=== PATIENT | male | born 1945 | race Caucasian/White ===

== ENCOUNTER 2016-06-11 21:51 | Inpatient (IN) | payer BC ==
--- NOTE | ~2016-06-11 | HP ---
History And Physical [address] [place]. [address] NAME: HAFSA SOTELO : 45 STATUS : ADM IN [facility]#: [id number] AGE: 71 ADM/REG DATE : 06/12/16 MR#: [id number] REPORT SERV DATE: 06/12/16 DICTATED BY: ZAINA URBINA DATE: 06/12/16 REPORT STATUS : Draft TRANSCRIBED BY: MODL DATE: 06/12/16 DATE OF ADMISSION: 06/12/2016 POINT OF ENTRY: [facility] Emergency Department. PRIMARY FENDER MECHANIC: Tramaine Gastelum M.D. GI DOCTOR: Amol Avelar M.D. CHIEF COMPLAINT: Fevers and abdominal pain. HISTORY OF PRESENT ILLNESS: Mr. Sotelo is a 71-year-old, gentleman with history of paroxysmal atrial fibrillation, currently on Eliquis as well as fdv-ozfpdbj-iqenakqoa diabetes mellitus type 2, hypertension, hyperlipidemia, and other medical comorbidities, who presents to emergency room today with a two-day history of severe lower quadrant abdominal pain with associated fevers. The patient states he was in his usual state of health until Friday morning when he developed severe bilateral lower quadrant abdominal pain described as crampy in nature with some radiation to his left hip region. Beginning shortly after that, he started to notice fevers as high as 102 degrees Fahrenheit. The pain and fevers continued throughout today prompting his presentation to the emergency department. He denies any nausea, vomiting, diarrhea, or constipation. Initial evaluation in the emergency department notable for a fever of 100.3 degrees Fahrenheit. Remainder of his vital signs were unremarkable[place] [address] scan of the abdomen and pelvis did show severe acute diverticulitis involving the mid to proximal sigmoid colon. The patient was subsequently admitted to the Hospitalist Service for further evaluation and management. REVIEW OF SYSTEMS: Comprehensive review of systems otherwise, negative unless listed in history of present illness. PAST MEDICAL HISTORY: 1. Paroxysmal atrial fibrillation, on Eliquis. 2. History of aortic stenosis, status post bioprosthetic AVR. 3. Coronary disease status post CABG. 4. Usf-uzkwoaw-loslrulql diabetes mellitus type 2. 5. Hypertension. 6. Hyperlipidemia. 7. Obstructive sleep apnea, on CPAP therapy. 8. Gastroesophageal reflux disease. 9. Chronic kidney stage III, baseline creatinine approximately 1.2 to 1.4. 10.Obesity. History And Physical [address] [address] NAME: HAFSA SOTELO : 45 STATUS : ADM IN PAT#: [id number] AGE: 71 ADM/REG DATE : 06/12/16 MR#: [id number] REPORT SERV DATE: 06/12/16 DICTATED BY: ZAINA URBINA DATE: 06/12/16 REPORT STATUS : Draft TRANSCRIBED BY: BALTAZAR DATE: 06/12/16 SURGICAL HISTORY: 1. Bioprosthetic AVR. 2. CABG. 3. Bilateral total knee. 4. Back surgery. ALLERGIES: NO KNOWN DRUG ALLERGIES. HOME MEDICATIONS: 1. Albuterol two puff inhalation p.r.n. shortness of breath. 2. Eliquis 5 mg b.i.d. 3. Losartan 50 mg b.i.d. 4. Metformin 500 mg b.i.d. 5. Protonix 40 mg at bedtime. 6. Crestor 10 mg at bedtime. 7. Sotalol 40 mg q.a.m. 8. Sotalol 80 mg q.p.m. 9. Maxzide 50 one tablet at bedtime. SOCIAL HISTORY: Denies any tobacco, alcohol, or illicits. FAMILY MEDICAL HISTORY: Mother with stroke. Father of old age at 93. Sibling with history of dementia. LABS AND IMAGIN. White count is 15.1, hemoglobin 15.4, hematocrit 45.5, and platelet count is 196. 2. Sodium is 137, potassium 4.0, chloride 101, carbon dioxide 30, BUN 23, creatinine 1.62, glucose is 119, calcium is 9.6, protein 7.9, albumin is 3.7, bilirubin is 0.9, ALT is 25, AST 15, and alkaline phosphatase is 60. 3. Lipase is 65, lactic acid is 1.4. 4. Urinalysis: Specific gravity is 1.017, no evidence of any infection. CT scan of the abdomen and pelvis shows cholelithiasis with severe acute diverticulitis involving the mid to proximal sigmoid colon. EKG per my review shows normal sinus rhythm with no evidence of any acute ischemia or infarction, just has some lateral T-wave inversions. Also, QTc is within normal limits. PHYSICAL EXAMINATION: VITAL SIGNS: Temperature is 100.3 degrees Fahrenheit, pulse is 82, respirations 14, saturating 94% on room air. Blood pressure 121/67. On recheck, blood pressure is now 118/59. GENERAL: The patient is awake, alert, in no acute distress, resting comfortably in bed. He is a well-developed, well-nourished, male, is at bedside. HEENT: Atraumatic and normocephalic. Moist mucous membranes. Pupils are equal, round, reactive to light and accommodation. Extraocular eye movements are intact. No scleral icterus. NECK: No jugular venous distention. No carotid bruits. History And Physical [address] [address] NAME: HAFSA SOTELO : 45 STATUS : ADM IN [facility]#: [id number] AGE: 71 ADM/REG DATE : 06/12/16 MR#: [id number] REPORT SERV DATE: 06/12/16 DICTATED BY: ZAINA URBINA DATE: 06/12/16 REPORT STATUS : Draft TRANSCRIBED BY: BALTAZAR DATE: 06/12/16 CARDIAC: Regular rate and rhythm. No murmurs or gallops. Normal S1, S2. LUNGS: Clear to auscultation bilaterally. No wheezes, rhonchi, or crackles. ABDOMEN: Soft, mildly tender to palpation bilateral lower quadrants but no rebound, guarding, rigidity. Hypoactive bowel sounds throughout. EXTREMITIES: Warm and well perfused. No cyanosis, clubbing, or edema. SKIN: Warm and dry. PSYCH: Affect appropriate. NEURO: Alert and oriented x3. Cranial nerves 2 through 12 grossly intact. Speech is normal. Gait not assessed. ASSESSMENT AND PLAN: Mr. Sotelo is a 71-year-old, gentleman, who presents with a two-day history of fevers and bilateral lower quadrant abdominal pain and found to have evidence of diverticulitis as well as sepsis. PROBLEM LIST: 1. Acute sigmoid diverticulitis. 2. Sepsis. 3. Acute kidney injury on chronic kidney stage III. 4. History of paroxysmal atrial fibrillation, on Eliquis. PLAN: 1. Acute diverticulitis. We will treat with supportive care with IV fluids, antiemetics, and pain control as well as antibiotics of Levaquin and Flagyl. The patient denies any diarrhea, nausea, or vomiting at this time. Therefore, we will place him on a clear liquid diet. Should he produce any diarrhea, we will send off for stool cultures, ova and parasites, and C. diff. 2. Sepsis. The patient [place] [address] here as well as reports of fevers of 102 degrees Fahrenheit at home. Blood cultures have been obtained. Lactic acid within normal limits. We are checking a procalcitonin level. Placing on IV antibiotics as well as IV fluids. 3. Acute kidney injury on chronic kidney disease stage 3. Holding the patient's nephrotoxic medications. Provide IV fluid hydration. 4. Atrial fibrillation, on Eliquis. Continue the patient's home sotalol as well as Eliquis. He is currently within normal sinus rhythm with normal QTc. We will continue cardiac telemetry monitoring given he is going to be on sotalol as well as Levaquin. 5. DVT prophylaxis. The patient is on Eliquis. CODE STATUS: The patient wished to be full code. LINCOLN/BALTAZAR Zaina Urbian MD / [id number] History And Physical [address] [address] NAME: HAFSA SOTELO : 45 STATUS : ADM IN [facility]#: [id number] AGE: 71 ADM/REG DATE : 06/12/16 MR#: [id number] REPORT SERV DATE: 06/12/16 DICTATED BY: ZAINA URBINA DATE: 06/12/16 REPORT STATUS : Draft TRANSCRIBED BY: BALTAZAR DATE: 06/12/16 CC: DO Kimberlyn Boyd M.D. William Warren, M.D. Amol Avelar M.D.
--- NOTE | ~2016-06-11 | DS ---
Discharge Summary [facility] [address] [place]. [address] NAME: HAFSA SOTELO : 45 STATUS : DIS IN PAT#: [id number] AGE: 71 ADM/REG DATE : 06/12/16 MR#: [id number] REPORT SERV DATE: 06/15/16 DICTATED BY: SHAWN IRVIN DATE: 06/14/16 REPORT STATUS : Draft TRANSCRIBED BY: MODL DATE: 06/14/16 ADMISSION DATE: 06/12/2016 DISCHARGE DATE: 06/14/2016 REASON FOR ADMISSION: Sepsis secondary to an acute diverticulitis. HISTORY OF PRESENT ILLNESS: Please refer to Dr. Denis's history and physical dated 06/12/2016 for complete details regarding the patient's admission. In brief, the patient is admitted to the Hospice Service for management and evaluation of his sepsis secondary to diverticulitis along with acute kidney injury. HOSPITAL COURSE: The patient had an uncomplicated hospital course. He presented with sepsis criteria. He had a CT scan of his abdomen and pelvis done without contrast in the ER, which showed severe acute diverticulitis involving a 10-cm long segment of the mid to proximal sigmoid colon, although no abscess identified. There was a serpiginous soft tissue attenuation tubular structure adjacent to the right lateral bladder wall of uncertain etiology. The patient was started on IV Levaquin and Flagyl. Fluid resuscitated. He was feeling better every day. He did have an elevated white blood cell count on admission and it has trended down towards normal. It has been normal for the past two days. He did present with an acute on chronic kidney disease secondary to sepsis and dehydration, which has now resolved. His creatinine is back down to roughly 1.17 with a GFR of 72. The patient is ambulating, eating well, not having any abdominal issues. He has reached maximal hospitalization. Will be discharged home in stable condition. DISCHARGE DIAGNOSES: Sepsis secondary to acute diverticulitis, resolved; acute on chronic kidney disease stage 2, now resolved; paroxysmal atrial fibrillation, on Eliquis, stable and rate controlled; hypertension, controlled. PROCEDURES: Include CT scan of the abdomen and pelvis without contrast. DISCHARGE MEDICATIONS: Include Eliquis 5 mg twice a day, Protonix 40 mg at bedtime, sotalol 40 mg every evening and 80 mg at bedtime, Crestor 10 mg at bedtime, Maxzide 50 mg every morning, losartan 50 mg twice a day, metformin 500 mg twice a day, ProAir p.r.n., Levaquin 750 mg once a day for seven days, and Flagyl 500 mg every eight hours for seven days. FOLLOWUP: The patient will follow up with Dr. Meléndez. He was given a copy of his CAT scan report in case he would like to pursue further characterization of this tubular structure that was noted on the CT scan. GINNA/BALTAZAR Shawn Irvin MD Discharge Summary [address] [address] NAME: HAFSA SOTELO : 45 STATUS : DIS IN PAT#: [id number] AGE: 71 ADM/REG DATE : 06/12/16 MR#: [id number] REPORT SERV DATE: 06/15/16 DICTATED BY: SHAWN IRVIN DATE: 06/14/16 REPORT STATUS : Draft TRANSCRIBED BY: VICENTEL DATE: 06/14/16 / [id number] CC: MD Kimberlyn Flores M.D. William Warren, M.D. Donald Hetzel, M.D.
[2016-06-11 19:34] LABS: ASCORBIC ACID (UR NOT ORDER) NEG (NEG); BASOPHILS 0.3 %; BASOPHILS ABSOLUTE 0.04 10/3/uL (0.0-0.16); BILIRUBIN, URINE NEGATIVE (NEG); EOSINOPHILS 0.1 %; EOSINOPHILS ABSOLUTE 0.01 10/3/uL (0.0-0.53); ER CBC TAT 0 Hrs 08 Mins; ER URINALYSIS TAT 0 Hrs 08 Mins; HEMATOCRIT 45.5 % (40.0-51.0); HEMOGLOBIN 15.4 g/dL (13.6-17.8); IMMATURE GRANULOCYTES 0.2 %; IMMATURE GRANULOCYTES ABSOLUTE 0.03 10/3/uL (0.0-0.11); KETONE, URINE NEGATIVE (NEG); LEUKOCYTE ESTERASE(NOT OR NEG (NEG); LYMPHOCYTES 17.6 %; LYMPHOCYTES ABSOLUTE 2.66 10/3/uL (0.67-4.30); MANUAL DIFF NO %; MEAN CORPUS HGB CONC 33.8 g/dL (32.0-36.0); MEAN CORPUSCULAR HEMOGLOB 27.4 pg (26.0-34.0); MEAN CORPUSCULAR VOLUME 80.8 fL (80-100); MEAN PLATELET VOLUME 10.3 fL (9.2-13.0); MONOCYTES 8.9 %; MONOCYTES ABSOLUTE 1.34 10/3/uL (0.21-1.20); NEUTROPHILS 72.9 %; NEUTROPHILS ABSOLUTE 11.02 10/3/uL (2.02-8.40); NITRITE (URINE) NEG (NEG); PLATELET COUNT 196 10/3/uL (150-400); RBC DISTRIBUTION WIDTH 16.4 % (12.0-16.0); RED CELL COUNT 5.63 10/6/uL (4.7-6.1); WBC (NOT ORDERED) (RFLEX) < 1 (0-5); WHITE BLOOD CELLS 15.1 10/3/uL (4.5-10.5)
[2016-06-11 19:52] LABS: A/G RATIO 0.9 (0.7-1.9); ALBUMIN 3.7 G/DL (3.5-5.0); ALKALINE PHOSPHATASE 60 U/L (45-117); BUN (BLOOD UREA NITROGEN) 23 MG/DL (6-23); CALCIUM, SERUM 9.6 MG/DL (8.5-10.4); CHLORIDE, SERUM 101 MMOL/L (96-112); CO2 (CARBON DIOXIDE) 30 MMOL/L (24-34); CREATININE 1.62 MG/DL (0.70-1.30); GFR AFRICAN AMERICAN 49 ML/MIN (>=60); GFR NON AFRICAN AMERICAN 42 ML/MIN (>=60); GLOBULIN 4.2 G/DL (2.5-4.1); GLUCOSE, SERUM 119 MG/DL (60-99); SGOT(AST) 15 U/L (5-40); SGPT(ALT) 25 U/L (5-65); SODIUM, SERUM 137 MMOL/L (135-148); TOTAL BILIRUBIN 0.9 MG/DL (0-1.2); TOTAL PROTEIN 7.9 G/DL (6.0-8.5)
[~2016-06-11 21:51] MED LIST: ASAB PO; AZOR1 TAB PO; CRESTOR10 PO; EFFEX37.5 PO; EFFEXXR75 PO; ELIQUIS 5 MG TAB5 MG PO; FISH-EPA1000 MG PO; FLONASE NAS; LOP25 PO; MAXZIDE PO; MULTIPLE VIT PO; NORV5 PO; PRIN20 PO; PROTONIX PO; SORINE80 MG PO; VITAMIN D2000 UNIT PO
[2016-06-12] MEDS ORDERED: CRESTOR10 PO (00:13)
[2016-06-12] MEDS ORDERED: ELIQUIS 5 MG TAB5 MG PO (00:14)
[2016-06-12] MEDS ORDERED: MAXZIDE PO (00:14)
[2016-06-12] MEDS ORDERED: COZ50 PO (00:14)
[2016-06-12] MEDS ORDERED: BETAPACE80 PO ×2 (00:14)
[2016-06-12] MEDS ORDERED: GLUCPH PO (00:15)
[2016-06-12] MEDS ORDERED: PROTONIX PO (00:16)
[2016-06-12] MEDS ORDERED: PROAIR HFA INH (00:16)
[2016-06-12 03:04] LABS: PROCALCITONIN 0.27 ng/mL (<0.5)
[2016-06-12 10:05] LABS: BASOPHILS 0.2 %; BASOPHILS ABSOLUTE 0.03 10/3/uL (0.0-0.16); EOSINOPHILS 0.2 %; EOSINOPHILS ABSOLUTE 0.02 10/3/uL (0.0-0.53); HEMATOCRIT 42.7 % (40.0-51.0); HEMOGLOBIN 14.5 g/dL (13.6-17.8); IMMATURE GRANULOCYTES 0.7 %; IMMATURE GRANULOCYTES ABSOLUTE 0.09 10/3/uL (0.0-0.11); LYMPHOCYTES 13.2 %; LYMPHOCYTES ABSOLUTE 1.74 10/3/uL (0.67-4.30); MEAN CORPUSCULAR HEMOGLOB 27.8 pg (26.0-34.0); MEAN CORPUSCULAR VOLUME 81.8 fL (80-100); MEAN PLATELET VOLUME 10.3 fL (9.2-13.0); MONOCYTES ABSOLUTE 1.19 10/3/uL (0.21-1.20); NEUTROPHILS 76.7 %; NEUTROPHILS ABSOLUTE 10.14 10/3/uL (2.02-8.40); PLATELET COUNT 184 10/3/uL (150-400); RBC DISTRIBUTION WIDTH 16.3 % (12.0-16.0); RED CELL COUNT 5.22 10/6/uL (4.7-6.1); WHITE BLOOD CELLS 13.2 10/3/uL (4.5-10.5)
[2016-06-12 10:15] LABS: MANUAL DIFF NO %
[2016-06-12 10:15] LABS: ALBUMIN 3.1 G/DL (3.5-5.0); BUN (BLOOD UREA NITROGEN) 22 MG/DL (6-23); CALCIUM, SERUM 9.1 MG/DL (8.5-10.4); CHLORIDE, SERUM 102 MMOL/L (96-112); CO2 (CARBON DIOXIDE) 29 MMOL/L (24-34); CREATININE 1.53 MG/DL (0.70-1.30); GFR AFRICAN AMERICAN 52 ML/MIN (>=60); GFR NON AFRICAN AMERICAN 45 ML/MIN (>=60); GLUCOSE, SERUM 143 MG/DL (60-99); PHOSPHORUS, SERUM 2.4 MG/DL (2.5-4.5); POTASSIUM, SERUM 3.7 MMOL/L (3.5-5.3); SODIUM, SERUM 138 MMOL/L (135-148)
[2016-06-13 06:03] LABS: CALCIUM, SERUM 8.9 MG/DL (8.5-10.4); CHLORIDE, SERUM 106 MMOL/L (96-112); CO2 (CARBON DIOXIDE) 25 MMOL/L (24-34); CREATININE 1.23 MG/DL (0.70-1.30); GFR AFRICAN AMERICAN 68 ML/MIN (>=60); GFR NON AFRICAN AMERICAN 59 ML/MIN (>=60); PHOSPHORUS, SERUM 1.9 MG/DL (2.5-4.5); POTASSIUM, SERUM 3.7 MMOL/L (3.5-5.3); SODIUM, SERUM 140 MMOL/L (135-148)
[2016-06-13 06:04] LABS: BUN (BLOOD UREA NITROGEN) 15 MG/DL (6-23); GLUCOSE, SERUM 112 MG/DL (60-99)
[2016-06-13 06:07] LABS: BASOPHILS 0.6 %; BASOPHILS ABSOLUTE 0.05 10/3/uL (0.0-0.16); EOSINOPHILS 1.3 %; EOSINOPHILS ABSOLUTE 0.11 10/3/uL (0.0-0.53); HEMATOCRIT 39.8 % (40.0-51.0); HEMOGLOBIN 13.4 g/dL (13.6-17.8); IMMATURE GRANULOCYTES 0.3 %; IMMATURE GRANULOCYTES ABSOLUTE 0.03 10/3/uL (0.0-0.11); LYMPHOCYTES 16.4 %; LYMPHOCYTES ABSOLUTE 1.41 10/3/uL (0.67-4.30); MEAN CORPUS HGB CONC 33.7 g/dL (32.0-36.0); MEAN CORPUSCULAR HEMOGLOB 27.1 pg (26.0-34.0); MEAN CORPUSCULAR VOLUME 80.4 fL (80-100); MEAN PLATELET VOLUME 10.6 fL (9.2-13.0); MONOCYTES 13.1 %; MONOCYTES ABSOLUTE 1.12 10/3/uL (0.21-1.20); NEUTROPHILS 68.3 %; NEUTROPHILS ABSOLUTE 5.86 10/3/uL (2.02-8.40); PLATELET COUNT 160 10/3/uL (150-400); RBC DISTRIBUTION WIDTH 16.5 % (12.0-16.0); RED CELL COUNT 4.95 10/6/uL (4.7-6.1); WHITE BLOOD CELLS 8.6 10/3/uL (4.5-10.5)
[2016-06-13 06:08] LABS: MANUAL DIFF NO %
[2016-06-14 05:58] LABS: BASOPHILS 0.8 %; BASOPHILS ABSOLUTE 0.05 10/3/uL (0.0-0.16); EOSINOPHILS 3.2 %; HEMATOCRIT 40.6 % (40.0-51.0); HEMOGLOBIN 13.8 g/dL (13.6-17.8); IMMATURE GRANULOCYTES 0.3 %; IMMATURE GRANULOCYTES ABSOLUTE 0.02 10/3/uL (0.0-0.11); LYMPHOCYTES 24.8 %; LYMPHOCYTES ABSOLUTE 1.53 10/3/uL (0.67-4.30); MEAN CORPUSCULAR HEMOGLOB 27.3 pg (26.0-34.0); MEAN CORPUSCULAR VOLUME 80.2 fL (80-100); MEAN PLATELET VOLUME 10.3 fL (9.2-13.0); MONOCYTES ABSOLUTE 0.68 10/3/uL (0.21-1.20); NEUTROPHILS 59.9 %; PLATELET COUNT 184 10/3/uL (150-400); RBC DISTRIBUTION WIDTH 16.3 % (12.0-16.0); RED CELL COUNT 5.06 10/6/uL (4.7-6.1); WHITE BLOOD CELLS 6.2 10/3/uL (4.5-10.5)
[2016-06-14 05:59] LABS: MANUAL DIFF NO %
[2016-06-14 06:09] LABS: BUN (BLOOD UREA NITROGEN) 13 MG/DL (6-23); CALCIUM, SERUM 8.7 MG/DL (8.5-10.4); CHLORIDE, SERUM 107 MMOL/L (96-112); CO2 (CARBON DIOXIDE) 25 MMOL/L (24-34); CREATININE 1.17 MG/DL (0.70-1.30); GFR AFRICAN AMERICAN 72 ML/MIN (>=60); GFR NON AFRICAN AMERICAN 62 ML/MIN (>=60); GLUCOSE, SERUM 121 MG/DL (60-99); POTASSIUM, SERUM 3.8 MMOL/L (3.5-5.3); SODIUM, SERUM 142 MMOL/L (135-148)
[2016-06-14 06:14] LABS: PHOSPHORUS, SERUM 2.5 MG/DL (2.5-4.5)
[2016-06-14] MEDS ORDERED: FLAG500TAB PO (08:26)
[2016-06-14] MEDS ORDERED: LEVAQUIN750 MG PO (08:26)
[2016-08-07] MEDS ORDERED: OCUVITE PO (16:04)
[2016-08-07] MEDS ORDERED: EFFEX75 PO (16:04)
[2016-09-04] MEDS ORDERED: BETAPACE80 PO (11:06)
[2016-09-04] MEDS ORDERED: ASAB PO (11:12)
[2016-09-04] MEDS ORDERED: [UNRECOGNIZED DRUG - OTHER] PO (11:12)
== END 2016-06-14 10:36 | disposition home or self-care (01) | DRG 872 ==
LOC: ER 21:51 → 1SO 06-12 01:54
PROVIDERS: Emergency Medicine; Internal Medicine
DX: A41.9 Sepsis, unspecified organism (principal); N17.9 Acute kidney failure, unspecified; K57.32 Diverticulitis of large intestine without perforation or abscess without bleeding; E11.22 Type 2 diabetes mellitus with diabetic chronic kidney disease; I48.0 Paroxysmal atrial fibrillation; E86.0 Dehydration; I12.9 Hypertensive chronic kidney disease with stage 1 through stage 4 chronic kidney disease, or unspecified chronic kidney disease; E78.5 Hyperlipidemia, unspecified; I25.10 Atherosclerotic heart disease of native coronary artery without angina pectoris; K21.9 Gastro-esophageal reflux disease without esophagitis; N18.3 Chronic kidney disease, stage 3 (moderate); G47.33 Obstructive sleep apnea (adult) (pediatric); Z79.01 Long term (current) use of anticoagulants; Z79.84 Long term (current) use of oral hypoglycemic drugs; Z79.899 Other long term (current) drug therapy; Z95.2 Presence of prosthetic heart valve; Z95.1 Presence of aortocoronary bypass graft; Z96.653 Presence of artificial knee joint, bilateral
CPT/HCPCS: 74176; 80048; 80053; 80069; 81001; 82272; 83605; 83690; 83735; 84100; 84145; 85025; 87040; 93005; 99285; A9270-GY; J1170; J1956; J2405